=== PATIENT | female | born 1985 | race Two or more races ===

== ENCOUNTER 2020-09-14 19:21 | Emergency (ER) | payer OTHER ==
[~2020-09-14] VITALS: Ht 157.5 cm; Wt 72.7 kg
[2020-09-14] MEDS ORDERED: LIDOCAINE 1% 10 ML VIAL INJ ONE (22:30)
[2020-09-15 00:15] VITALS: BP 129/89
== END 2020-09-15 00:50 | disposition home or self-care (01) ==
LOC: EMS 19:29
DX: S91.205A Unspecified open wound of left lesser toe(s) with damage to nail, initial encounter (principal); W45.8XXA Other foreign body or object entering through skin, initial encounter; Y93.89 Activity, other specified; Y92.89 Other specified places as the place of occurrence of the external cause; Y99.8 Other external cause status
CPT/HCPCS: 64450; 99284; J3490; 11730